=== PATIENT | female | born 1975 | race Caucasian/White ===

== ENCOUNTER 2023-06-14 08:47 | Emergency (ER) | payer OTHER, SELFPAY ==
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
[2023-06-14 08:59] VITALS: BP 132/69; BP 167/64; PULSE 73; PULSE 80; RESP 18; TEMP 36.9; O2SAT 100; BMI 27.4
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
[2023-06-14] MEDS: Ketorolac Tromethamine 15 MG/ML VIAL IVPUSH (09:32)
--- NOTE | 2023-06-14 09:40 | PC.NURSE ---
patient a&ox3, vss, pt medicated per order, labs drawn per order, call lozano within reach/family at bedside, pt awaiting lab results and radiology, will continue to monitor
[2023-06-14 09:49] LABS: MANUAL DIFF FLAG NO
[2023-06-14 09:51] LABS: Basophils Percent Auto 0.6 % (0-2); Eosinophils Percent Auto 0.5 % (0-4); Hematocrit 33.5 % (37.0-47.0); Hemoglobin 11.4 g/dl (12.0-16.0); Imm Gran Abs Auto 0.04 X10*3/uL (0.00-0.03); Imm Gran Pct Auto 0.6 % (0.0-0.4); Lymphocytes Absolute Auto 0.9 X10*3/uL (1.2-4.9); Lymphocytes Percent Auto 14.3 % (20-40); Mean Corpuscular Hemoglobin 31.5 pg (27.0-33.0); Mean Corpuscular Volume 92.5 fL (80.0-98.0); Mean Platelet Volume 10.8 fL (9.4-12.3); Monocytes Absolute Auto 0.3 X10*3/uL (0.1-1.2); Neutrophils Absolute Auto 5.1 x10*3/uL (2.0-8.3); Platelet Count 216 X10*3/uL (160-400); Red Blood Count 3.62 X10*6/uL (4.20-5.50); Red Cell Distribution Width 12.3 % (11.0-16.0); White Blood Count 6.5 X10*3/uL (4.8-10.8)
[2023-06-14 10:14] LABS: Alanine Aminotransferase 28 U/L (0-31); Albumin Level 3.5 g/dL (3.5-5.0); Alkaline Phosphatase 57 U/L (39-117); Anion Gap 8 (12-20); Aspartate Amino Transferase 69 U/L (5-31); Bilirubin Total 0.2 mg/dL (0.0-1.0); Blood Urea Nitrogen 10 mg/dL (9-16); Calcium 8.6 mg/dL (8.4-10.2); Carbon Dioxide 28 mmol/L (22-29); Chloride 109 mmol/L (96-108); Creatinine Clr Calc Pharmacy 116.6; Estimated Glomerular Filt Rate > 60; Glucose Random 122 mg/dL (60-115); Sodium 141 mmol/L (135-145); Total Protein 6.4 g/dL (6.5-8.0)
[2023-06-14 10:28] LABS: HCG Quantitative < 2 mIU/mL
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
[2023-06-14] MEDS: Bacitracin Oint 0.9 GM PACKET 1 APPL TOPICAL (11:59)
[2023-06-14] MEDS: iohexoL 350 MG/ML 100 ML INFUS..BTL 85 ML IV (12:31)
[2023-06-14 16:14] VITALS: BP 132/69; PULSE 73; RESP 18; TEMP 36.9; O2SAT 100
== END 2023-06-14 16:15 | disposition home or self-care (01) ==
PROVIDERS: Nurse Practitioner Family; Emergency Provider Emergency Medicine
DX: S32.501A Unspecified fracture of right pubis, initial encounter for closed fracture (principal); V09.9XXA Pedestrian injured in unspecified transport accident, initial encounter; Y93.01 Activity, walking, marching and hiking; Y92.410 Unspecified street and highway as the place of occurrence of the external cause; Y99.9 Unspecified external cause status
CPT/HCPCS: 36415; 70450; 71260; 72125; 72170; 73562; 74177; 80053; 84702; 85025; 96374; 99283; 99284; J1885; Q9967